=== PATIENT | female | born 1995 | race Hispanic/Latino ===

== ENCOUNTER 2023-10-31 04:25 | Day surgery (SDC) | payer BC ==
[2023-10-31 04:59] VITALS: BMI 46.5
[2023-10-31] MEDS ORDERED: hydrALAZINE 20 MG/ML VIAL SLOW IVP PRN (05:30)
[2023-10-31 06:33] LABS: FFN Internal QC Analyzer PASS (PASS); FFN Internal QC Cassette PASS (PASS); Fetal Fibronectin Negative (Negative)
== END 2023-10-31 06:55 | disposition home or self-care (01) ==
LOC: CSHLD/OP 04:25
PROVIDERS: ATTEND Student in an Organized Health Care Education/Training Program
DX: O36.8120 Decreased fetal movements, second trimester, not applicable or unspecified (principal); O00.01 Abdominal pregnancy with intrauterine pregnancy; O47.02 False labor before 37 completed weeks of gestation, second trimester; Z3A.27 27 weeks gestation of pregnancy
CPT/HCPCS: 76817; 76819; 82731; 99283